=== PATIENT | female | born 1955 | race Caucasian/White ===

== ENCOUNTER 2020-03-05 15:50 | Emergency (ER) | payer BC, MEDICARE ==
[2020-03-05] MEDS ORDERED: Sodium Chloride 0.9% 1,000 ML IV ONE ×2 (16:24→18:32)
--- NOTE | 2020-03-05 16:24 | EDM.PDOC ---
<Sanchez Mathews - Last Filed: 03/05/20 16:17> ED HPI GENERAL MEDICAL PROBLEM - General Chief Complaint: Abdominal Pain Stated Complaint: FALL Time Seen by Provider: 03/05/20 16:17 Source of Information: Reports: Patient, EMS History Limitations: Reports: No Limitations - History of Present Illness INITIAL COMMENTS - FREE TEXT/NARRATIVE: Patient arrives via EMS with abdominal pain and weakness. She was found sitting on the floor of her living room today by her boss when she didn't show up for work. Patient is alert and cooperative. She denies LOC or fall. She says she sat down on the floor and couldn't get up because her legs were swollen. She says she has been sitting there for two days. She has had water to drink and two servings of pudding that were near her. She had diarrhea this morning while sitting there. She says she has had the abdominal pain for two weeks and it is getting worse. She denies chest pain. Has some shortness of breath from her COPD but no worse than usual. She denies vomiting in the last few days. - Related Data Allergies Allergy/AdvReac Type Severity Reaction Status Date / Time No Known Drug Allergies Allergy Unknown Other Verified 03/05/20 17:13 Home Meds: Home Meds Albuterol [Proventil Neb Soln] 2.5 mg INH QID PRN 09/26/17 [History] Albuterol [Ventolin HFA] 2 puff INH Q4H PRN 09/26/17 [History] Albuterol/Ipratropium [DuoNeb 3.0-0.5 MG/3 ML] 3 ml INH BID PRN 09/26/17 [History] Losartan Potassium 50 mg PO DAILY 09/26/17 [History] amLODIPine Besylate [Amlodipine Besylate] 5 mg PO DAILY 09/26/17 [History] ALPRAZolam [Xanax] 0.25 mg PO QID PRN #20 tablet 09/30/17 [Rx] Budesonide/Formoterol Fumarate [Symbicort 160-4.5 Mcg Inhaler] 1 puff IH BID #3 canister 09/30/17 [Rx] Omeprazole 20 mg PO QAM 03/05/20 [History] Past Medical History Cardiovascular History: Reports: Hypertension Respiratory History: Reports: Bronchitis, Recurrent, COPD [employer]IST History: Reports: Musculoskeletal History: Reports: Arthritis Psychiatric History: Reports: Anxiety Social & Family History - Caffeine Use Caffeine Use: Reports: Coffee, Soda ED ROS GENERAL - Review of Systems Review Of Systems: See Below Constitutional: Reports: Weakness. Denies: Fever, Chills HEENT: Denies: Ear Pain, Throat Pain, Vision Change Respiratory: Reports: Shortness of Breath (chronic). Denies: Wheezing, Cough Cardiovascular: Denies: Chest Pain, Syncope GI/Abdominal: Reports: Abdominal Pain, Diarrhea. Denies: Vomiting : Denies: Dysuria, Flank Pain Musculoskeletal: Reports: Back Pain (from the backboard she was on in ambulance). Denies: Neck Pain, Shoulder Pain, Arm Pain Skin: Reports: Other (There was report of mild pallor/cyanosis from EMS but okay now.). Denies: Cyanosis, Jaundice, Mottled, Pallor, Diaphoresis Neurological: Denies: Confusion, Headache, Seizure, Syncope, Trouble Speaking Psychiatric: Denies: Agitation, Anxiety, Confusion ED EXAM, GENERAL - Physical Exam Exam: See Below Exam Limited By: No Limitations General Appearance: Alert, WD/WN, No Apparent Distress Eye Exam: Bilateral Eye: EOMI, Normal Inspection, PERRL Ears: Normal External Exam, Hearing Grossly Normal Nose: Normal Inspection, No Blood Throat/Mouth: Other (there is a dark coating in mouth and lips, unsure etiology) Head: Atraumatic, Normocephalic Neck: Normal Inspection Respiratory/Chest: No Respiratory Distress, Lungs Clear, Normal Breath Sounds Cardiovascular: Regular Rate, Rhythm Peripheral Pulses: 1+: Carotid (L), Carotid (R), Posterior Tibial (R), Dorsalis Pedis (L), 2+: Radial (L), Radial (R) GI/Abdominal: No Abnormal Bruit, Distended, Tender (somewhat throughout but especially in epigastric and LUQ regions) Extremities: No Pedal Edema, Slow Capillary Refill (slightly in toes), Mottled (somewhat at first but resolved ), Other (Initially calf squeeze was tender bilat without appreciable swelling. Recheck 15 minutes later was nontender bilat.) Neurological: Alert, Oriented, CN II-XII Intact, Normal Cognition, No Motor/Sensory Deficits Psychiatric: Normal Affect, Normal Mood Skin Exam: Warm, Dry, Intact, Normal Color, No Rash Course - Re-Assessments/Exams Free Text/Narrative Re-Assessment/Exam: 03/05/20 16:50 Patient turned over to SILVIA Arango now after discussion of case. Departure - Departure Disposition: DC/Tfer to [facility] 02 Clinical Impression: Hepatic encephalopathy, Cholecystitis Pancreatitis Qualifiers: Chronicity: acute Pancreatitis type: alcohol induced Acute renal failure Qualifiers: Acute renal failure type: unspecified Qualified Code(s): N17.9 - Acute kidney failure, unspecified Alcoholic cirrhosis Qualifiers: Ascites presence: with ascites Qualified Code(s): K70.31 - Alcoholic cirrhosis of liver with ascites - Discharge Information Referrals: Pricila Villalpando [employer]URING [employer]PERVISOR [Primary Care Provider] - Forms: ED Department Discharge, Interfacility Transfer EMTALA <Nakul Davis - Last Filed: 03/05/20 19:20> ED HPI GENERAL MEDICAL PROBLEM - General Source of Information: Reports: Patient History Limitations: Reports: No Limitations - History of Present Illness Duration: Day(s): (2) Quality: Reports: Ache Severity: Moderate Improves with: Reports: None Worsens with: Reports: Movement Associated Symptoms: Reports: Loss of Appetite, Malaise, Nausea/Vomiting, Weakness Course - Vital Signs Last Recorded V/S: Last Vital Signs Temp 97.2 F 03/05/20 16:52 Pulse 94 03/05/20 18:34 Resp 13 03/05/20 18:34 BP 92/57 L 03/05/20 18:34 Pulse Ox 91 L 03/05/20 18:34 - Orders/Labs/Meds Orders: Active Orders 24 hr Category Date Time Status Flores Catheter Insertion [Insert Urinary Catheter] [OM. Care 03/05/20 19:15 Ordered PC] Q24H Urinary Catheter Assessment [RC] ASDIRECTED Care 03/05/20 19:15 Active CULTURE BLOOD [BC] Stat Lab 03/05/20 19:16 Ordered CULTURE BLOOD [BC] Stat Lab 03/05/20 19:16 Ordered UA W/MICROSCOPIC [URIN] Stat Lab 03/05/20 19:14 Ordered Sodium Chloride 0.9% [Normal Saline] 1,000 ml Med 03/05/20 18:32 Active IV .BOLUS Blood Culture x2 Reflex Set [OM.PC] Stat Oth 03/05/20 19:16 Ordered Medication Orders Sodium Chloride (Normal Saline) 1,000 mls @ 999 mls/hr IV .BOLUS ONE Stop: 03/05/20 19:32 Last Admin: 03/05/20 18:21 Dose: 999 mls/hr Documented by: ELIZABETH Labs: Laboratory Tests 03/05/20 03/05/20 03/05/20 Range/Units 15:40 15:40 15:40 WBC 15.45 H (5.00-10.00) 10^3/uL RBC 4.53 (3.80-5.50) 10^6/uL Hgb 13.2 D (12.0-16.0) g/dL Hct 41.5 (37.0-47.0) % MCV 91.6 D (82.0-92.0) fL MCH 29.1 (27.0-31.0) pg MCHC 31.8 L (32.0-36.0) g/dL RDW 16.4 H (11.5-14.5) % Plt Count 282 (150-400) 10^3/uL MPV 10.0 (7.4-10.4) fL Immature Gran % (Auto) 0.6 (0.0-5.0) % Neut % (Auto) 91.1 H (50.0-70.0) % Lymph % (Auto) 2.3 L (20.0-40.0) % Broome % (Auto) 5.9 (2.0-8.0) % Eos % (Auto) 0.0 L (1.0-3.0) % Baso % (Auto) 0.1 (0.0-1.0) % Neut # (Auto) 14.08 H (2.50-7.00) 10^3/uL Lymph # (Auto) 0.36 L (1.00-4.00) 10^3/uL Broome # (Auto) 0.91 H (0.10-0.80) 10^3/uL Eos # (Auto) 0.00 L (0.10-0.30) 10^3/uL Baso # (Auto) 0.01 (0.00-0.10) 10^3/uL Immature Gran # (Auto) 0.09 (0.00-0.50) 10^3/uL Sodium 127 L (136-145) mmol/L Potassium 5.4 H (3.5-5.1) mmol/L Chloride 92 L (98-107) mmol/L Carbon Dioxide 12.5 L (21.0-32.0) mmol/L Anion Gap 27.9 H (5-15) mmol/L BUN 72 H* (7-18) mg/dL Creatinine 6.68 H (0.51-1.17) mg/dL Est Cr Clr Drug Dosing 7.25 mL/min Estimated GFR (MDRD) 6 mL/min Glucose 75 (70-140) mg/dL Lactic Acid 1.2 (0.4-2.0) mmol/L Calcium 7.3 L (8.7-10.3) mg/dL Total Bilirubin 1.8 H (0.2-1.0) mg/dL AST 1105 H (15-37) U/L ALT 1046 H (14-63) U/L Alkaline Phosphatase 420 H (46-116) U/L Ammonia (11.2-31.7) umol/L Creatine Kinase (26-276) U/L Total Protein 6.9 (6.4-8.2) g/dL Albumin 3.57 (3.40-5.00) g/dL Lipase 1022 H (73-393) U/L Ethyl Alcohol < 3 H (NOT DETECTED) mg/dL 03/05/20 03/05/20 Range/Units 16:40 17:51 WBC (5.00-10.00) 10^3/uL RBC (3.80-5.50) 10^6/uL Hgb (12.0-16.0) g/dL Hct (37.0-47.0) % MCV (82.0-92.0) fL MCH (27.0-31.0) pg MCHC (32.0-36.0) g/dL RDW (11.5-14.5) % Plt Count (150-400) 10^3/uL MPV (7.4-10.4) fL Immature Gran % (Auto) (0.0-5.0) % Neut % (Auto) (50.0-70.0) % Lymph % (Auto) (20.0-40.0) % Broome % (Auto) (2.0-8.0) % Eos % (Auto) (1.0-3.0) % Baso % (Auto) (0.0-1.0) % Neut # (Auto) (2.50-7.00) 10^3/uL Lymph # (Auto) (1.00-4.00) 10^3/uL Broome # (Auto) (0.10-0.80) 10^3/uL Eos # (Auto) (0.10-0.30) 10^3/uL Baso # (Auto) (0.00-0.10) 10^3/uL Immature Gran # (Auto) (0.00-0.50) 10^3/uL Sodium (136-145) mmol/L Potassium (3.5-5.1) mmol/L Chloride (98-107) mmol/L Carbon Dioxide (21.0-32.0) mmol/L Anion Gap (5-15) mmol/L BUN (7-18) mg/dL Creatinine (0.51-1.17) mg/dL Est Cr Clr Drug Dosing mL/min Estimated GFR (MDRD) mL/min Glucose (70-140) mg/dL Lactic Acid (0.4-2.0) mmol/L Calcium (8.7-10.3) mg/dL Total Bilirubin (0.2-1.0) mg/dL AST (15-37) U/L ALT (14-63) U/L Alkaline Phosphatase (46-116) U/L Ammonia 108.0 H (11.2-31.7) umol/L Creatine Kinase 749 H* (26-276) U/L Total Protein (6.4-8.2) g/dL Albumin (3.40-5.00) g/dL Lipase (73-393) U/L Ethyl Alcohol (NOT DETECTED) mg/dL Meds: Medications Generic Name Dose Route Start Last Admin Trade Name Freq PRN Reason Stop Dose Admin Sodium Chloride 1,000 mls @ 999 mls/hr 03/05/20 18:32 03/05/20 18:21 Normal Saline IV 03/05/20 19:32 999 mls/hr .BOLUS ONE Administration Discontinued Medications Generic Name Dose Route Start Last Admin Trade Name Freq PRN Reason Stop Dose Admin Ceftriaxone Sodium 2 gm 03/05/20 18:57 03/05/20 19:13 Rocephin IVPUSH 03/05/20 18:58 2 gm ONETIME ONE Administration Sodium Chloride 1,000 mls @ 999 mls/hr 03/05/20 16:24 03/05/20 17:12 Normal Saline IV 03/05/20 17:24 999 mls/hr .BOLUS ONE Administration Sodium Chloride 50 mls @ 200 mls/min 03/05/20 17:00 Normal Saline IV ASDIRECTED COLBY Sodium Chloride Confirm 03/05/20 18:21 03/05/20 18:40 Normal Saline Administered 03/05/20 18:22 Not Given Dose 1,000 mls @ as directed .ROUTE .STK-MED ONE Iopamidol 75 ml 03/05/20 16:49 Isovue-370 (76%) IVPUSH 03/05/20 16:50 ONETIME ONE Lactulose 20 gm 03/05/20 18:32 03/05/20 18:45 Cephulac PO 03/05/20 18:33 20 gm ONETIME ONE Administration - Radiology Interpretation Free Text/Narrative:: CT ABD/PELVIS- Departure - Departure Time of Disposition: 18:59 Condition: Serious Sepsis Event Note (ED) - Focused Exam Vital Signs: Vital Signs Temp Pulse Resp BP Pulse Ox 03/05/20 18:34 94 13 92/57 L 91 L 03/05/20 18:30 94 14 98/52 L 91 L 03/05/20 18:10 94 16 92/56 L 90 L 03/05/20 17:50 94 17 105/88 91 L 03/05/20 17:20 94 16 91/53 L 90 L 03/05/20 16:52 97.2 F 95 19 105/50 L 93 L 03/05/20 16:50 94 16 90/55 L 92 L 03/05/20 16:20 95 20 101/54 L 92 L 03/05/20 16:05 94 16 107/59 L 93 L - My Orders Last 24 Hours: My Active Orders 03/05/20 18:32 Sodium Chloride 0.9% [Normal Saline] 1,000 ml IV .BOLUS 03/05/20 19:14 UA W/MICROSCOPIC [URIN] Stat 03/05/20 19:15 Flores Catheter Insertion [Insert Urinary Catheter] [OM.PC] Q24H Urinary Catheter Assessment [RC] ASDIRECTED 03/05/20 19:16 CULTURE BLOOD [BC] Stat CULTURE BLOOD [BC] Stat Blood Culture x2 Reflex Set [OM.PC] Stat - Assessment/Plan Last 24 Hours: My Active Orders 03/05/20 18:32 Sodium Chloride 0.9% [Normal Saline] 1,000 ml IV .BOLUS 03/05/20 19:14 UA W/MICROSCOPIC [URIN] Stat 03/05/20 19:15 Flores Catheter Insertion [Insert Urinary Catheter] [OM.PC] Q24H Urinary Catheter Assessment [RC] ASDIRECTED 03/05/20 19:16 CULTURE BLOOD [BC] Stat CULTURE BLOOD [BC] Stat Blood Culture x2 Reflex Set [OM.PC] Stat Assessment:: 1. POSSIBLE CHOLECYSTITIS 2. HEPATIC ENCEPHALOPATHY 3. ALCOHOLIC CIRRHOSIS 4. PANCREATITIS 5. ACUTE RENAL FAILURE Plan: 1. TRANSFER TO HIGHER LEVEL OF CARE- DR KNIGHT 2. ROCEPHIN 2G IV NOW 3. FLORES CATH 4. BLOOD CULTURES X 2 5. SUPPORTIVE CARE
[2020-03-05] MEDS ORDERED: Iopamidol 755 Mg/ML 75 ML Bottle IVPUSH ONE (16:49)
[2020-03-05] MEDS ORDERED: Sodium Chloride 0.9% 50 ML IV SCH (17:00)
[2020-03-05 17:18] LABS: ANION GAP 27.9 mmol/L (5-15); CHLORIDE,CL 92 mmol/L (98-107); SODIUM,NA 127 mmol/L (136-145)
[2020-03-05] MEDS ORDERED: Sodium Chloride 0.9% 1,000 ML ONE (18:21)
[2020-03-05] MEDS ORDERED: Lactulose Soln 10 GM/15 ML 30 ML UD Cup PO ONE (18:32)
--- NOTE | 2020-03-05 18:54 | CT ---
[id number] CT/CT Abdomen Pelvis WO IV Exam: CT Abdomen Pelvis WO IV Clinical Data: ABDOMINAL PAIN COMPARISON: NO PREVIOUS SIMILAR EXAM IS AVAILABLE FINDINGS: IV contrast could not be used because of impaired renal function. There is a 1 cm lobulated density at the left lung base posteriorly CT of the chest in the future would be helpful This finding is seen on image 3, series 2. There are diffuse atheromatous changes There is a small hiatal hernia The gallbladder is moderately distended There is a small amount of edema around the gallbladder There is no free fluid or free air. There is a small left internal hernia containing bowel The liver and spleen show no focal abnormalities The adrenals and pancreas show no acute abnormality There is no hydronephrosis There is a possible 3.5 cm lower pole right renal mass on image 68, series 2 IMPRESSION: QUESTION OF CHOLECYSTITIS CONSIDER ULTRASOUND POSSIBLE LOWER POLE RIGHT RENAL CYST ULTRASOUND HERE WOULD BE HELPFUL ALSO NODULAR DENSITY LEFT LUNG BASE Deny Johns MD 03/05/20 [id number] Thank you for allowing us to participate in the care of your patient.
[2020-03-05] MEDS ORDERED: cefTRIAXone 2 GM Vial IVPUSH ONE (18:57)
[2020-03-05] MEDS ORDERED: HYDROmorphone 1 MG/ML Syringe IVPUSH ONE (19:29)
[2020-03-05] MEDS ORDERED: Sodium Chloride 0.9% 1,000 ML IV SCH (19:30)
== END 2020-03-05 20:10 ==
LOC: KA.ED 15:50
DX: N17.9 Acute kidney failure, unspecified (principal); K70.31 Alcoholic cirrhosis of liver with ascites; K85.20 Alcohol induced acute pancreatitis without necrosis or infection; K81.9 Cholecystitis, unspecified; K70.40 Alcoholic hepatic failure without coma; I10 Essential (primary) hypertension; Z79.899 Other long term (current) drug therapy; J44.9 Chronic obstructive pulmonary disease, unspecified
CPT/HCPCS: 36415; 51702; 74176; 80053; 80307; 82140; 82550; 83605; 83690; 85025; 87040; 96374; 96375; 99285; A9270; J0696; J1170; J7030; 99284